=== PATIENT | female | born 1965 | race Caucasian/White ===

== ENCOUNTER 2023-01-12 13:46 | Outpatient (CLI) | payer BC, SELFPAY | END 2023-01-12 13:47 | disposition home or self-care (01) | LOC: LKVREF 13:47 | PROVIDERS: PCP Physician Assistant Medical; Visit Provider Physician Assistant Medical | DX: Z01.818 Encounter for other preprocedural examination (principal); E78.5 Hyperlipidemia, unspecified; I10 Essential (primary) hypertension; R73.09 Other abnormal glucose; Z82.49 Family history of ischemic heart disease and other diseases of the circulatory system | CPT/HCPCS: 80048; 84443 ==

== ENCOUNTER 2023-02-13 17:33 | Outpatient (CLI) | payer BC, SELFPAY | END 2023-02-13 17:34 | disposition home or self-care (01) | LOC: LKVREF 17:33 | PROVIDERS: PCP Physician Assistant Medical; Visit Provider Physician Assistant Medical | DX: K13.79 Other lesions of oral mucosa (principal); I10 Essential (primary) hypertension | CPT/HCPCS: 87158; 87253 ==